=== PATIENT | female | born 1990 | race Caucasian/White ===

== ENCOUNTER 2017-09-25 16:02 | Emergency (ER) | payer OTHER ==
[2017-09-25 16:39] VITALS: O2SAT 96
[2017-09-25] MEDS ORDERED: RANITIDINE 50 MG/2 ML VIAL IVP ONE (17:19)
[2017-09-25] MEDS ORDERED: methylPREDNISolone SOD SUCC 125 MG/2 ML VIAL IVP ONE (17:19)
--- NOTE | 2017-09-25 17:26 | EDPHY ---
H & P Stated Complaint: hives 2 days ago/on benadryl.pepcid/prednisone/recurring/no resp compromise Time Seen by Provider: 09/25/17 17:23 HPI/ROS: HPI: This is a 27-year-old female presents Chief Complaint: increasing hives /on meds for it Location: Bilateral leg Quality: Hives Duration: 2-3 day Signs and Symptoms: No shortness of breath, no wheezing, no throat pain, no difficulty swallowing, no chest pain Timing: Sudden, increasing Severity: Moderate Context: Patient reports that she is from [place] and here for the weekend visiting. While she was in a hotel room on Tuesday, she woke up in the middle the night due to her bilateral lower legs itching; she noted hives. She 1st went to an urgent care who directed her to an emergency room. In the emergency room she was given Benadryl, Pepcid, and prednisone 40 mg x5 days. She is taking these medications and noted improvement. She change hotels and now is in [address] in [place]. This morning she woke up again with hives on her lower leg that are extremely pruritic. No prior history of environmental allergies. She denies any wheezing/difficulty swallowing/throat pain/difficulty talking. Modifying Factors: See above Comment: ROS: see HPI Constitutional: No fever, no chills, no weight loss Eyes: No blurred vision Respiratory: No shortness of breath, no cough Cardiovascular: No chest pain Gastrointestinal: No nausea, no vomiting, no diarrhea Genitourinary: No dysuria Extremities: No myalgias Neurologic: No weakness, no numbness Skin: + rashes Hematologic: No bruising, no bleeding MEDICAL/SURGICAL/SOCIAL HISTORY: Medical/SURGICAL history: arnold chiari malformation/surgery Social history: Employed, visiting from [place] CONSTITUTIONAL: Pleasant well-appearing talkative adult white female, awake and alert, no obvious distress HEENT: Atraumatic and normocephalic, PERRL, EOMI. Tympanic membranes clear. Oropharynx clear, no exudate and moist pink mucosa. Airway patent. No lymphadenopathy. No meningismus. Cardiovascular: Normal S1/S2, regular rate, regular rhythm, without murmur rub or gallop. PULMONARY/CHEST: Symmetrical and nontender. Clear to auscultation bilaterally. Good air movement. No accessory muscle usage. ABDOMEN: Soft, nondistended, nontender, no rebound, no guarding, no peritoneal signs, no masses or organomegaly. No CVAT. EXTREMITIES: 2/2 pulses, strength 5/5, no deformities, no clubbing, no cyanosis or edema. NEUROLOGICAL: no focal neuro deficits. GCS 15. SKIN: Warm and dry, hives scattered from upper thighs to ankles bilaterally sparing her feet noted; patient is actively scratching during interview and excoriations noted on her skin from such, no petechiae; no erythema. no rash. Good capillary refill. Source: Patient Exam Limitations: No limitations - Personal History LMP (Females 10-55): 1-7 Days Ago Current Tetanus/Diphtheria Vaccine: Yes - Medical/Surgical History Hx Asthma: No Hx Chronic Respiratory Disease: No Hx Diabetes: No Hx Cardiac Disease: No Hx Renal Disease: No Hx Cirrhosis: No Hx Alcoholism: No Hx HIV/AIDS: No Hx Splenectomy or Spleen Trauma: No Other PMH: arnold chiari malformation/surgery - Social History Smoking Status: Never smoked Constitutional: Initial Vital Signs Temperature (C) 37.1 C 09/25/17 16:35 Heart Rate 88 09/25/17 16:35 Respiratory Rate 18 09/25/17 16:35 Blood Pressure 144/114 H 09/25/17 16:35 O2 Sat (%) 96 09/25/17 16:35 O2 Delivery Mode Room Air Allergies/Adverse Reactions: sumatriptan [From Imitrex] Allergy (Verified 09/25/17 16:34) Home Medications: Medication Instructions Recorded BENADRYL 09/25/17 Concerta 09/25/17 Pepcid 09/25/17 hydrOXYzine HCL [Hydroxyzine HCl] 50 mg PO Q8 PRN #12 tablet 09/25/17 predniSONE 09/25/17 predniSONE [predniSONE TAPER] 10 mg PO DAILY 6 Days ea 09/25/17 Medical Decision Making ED Course/Re-evaluation: No signs of anaphylaxis/hypoxia/wheezing/airway compromise Patient given IV Benadryl, IV Pepcid, IV Solu-Medrol 125 mg given Patient monitored for over 2 hours in the ER with resolution of symptoms. Differential Diagnosis: Differential diagnosis includes but is not limited to contact dermatitis. - Data Points Medications Given: Discontinued Medications Diphenhydramine HCl (Benadryl Injection) 50 mg IVP EDNOW ONE Stop: 09/25/17 17:20 Last Admin: 09/25/17 17:40 Dose: 50 mg Methylprednisolone Sodium Succinate (Solu-Medrol) 125 mg IVP EDNOW ONE Stop: 09/25/17 17:20 Last Admin: 09/25/17 17:41 Dose: 125 mg Ranitidine HCl (Zantac) 50 mg IVP EDNOW ONE Stop: 09/25/17 17:20 Last Admin: 09/25/17 17:44 Dose: 50 mg Departure - Departure Disposition: Home, Routine, Self-Care Clinical Impression: Hives Contact dermatitis Qualifiers: Contact dermatitis type: allergic Contact dermatitis trigger: other trigger Qualified Code(s): L23.89 - Allergic contact dermatitis due to other agents Condition: Good Instructions: Urticaria (ED) Additional Instructions: Please avoid offending agent that is causing your hives. Referrals: NONE *PRIMARY CARE P,. [Primary Care Provider] - As per Instructions [facility],. [Clinic] - As per Instructions Prescriptions: hydrOXYzine HCL [Hydroxyzine HCl] 50 mg PO Q8 PRN #12 tablet PRN Reason: Itching predniSONE [predniSONE TAPER] 10 mg PO DAILY 6 Days ea
[2017-09-25 19:00] VITALS: BP 132/78; PULSE 74; RESP 15
[2017-09-25 19:11] VITALS: TEMP 98.2
== END 2017-09-25 19:10 | disposition home or self-care (01) ==
DX: L23.89 Allergic contact dermatitis due to other agents (principal)
CPT/HCPCS: 96374; J1200; J2780; J2930